=== PATIENT | female | born 1975 | race Native Hawaiian/Other Pacific Islander ===

== ENCOUNTER 2017-08-16 17:07 | Emergency (ER) | payer MEDICAID, OTHER ==
[~2017-08-16] VITALS: Ht 157.5 cm; Wt 118.2 kg
[~2017-08-16 17:07] MED LIST: NOCURR
[2017-08-16 18:00] LABS: CALCIUM, TOTAL 8.9 mg/dL (8.8-10.5); CREATININE 1.44 mg/dL (0.60-1.30); POTASSIUM 4.3 mmol/L (3.5-5.1)
[2017-08-16 18:03] LABS: BASOPHILS # (AUTO) 0.14 K/uL (0.00-0.20); BASOPHILS % (AUTO) 1.1 % (0.0-2.0); EOSINOPHILS # (AUTO) 0.52 K/uL (0.00-0.70); EOSINOPHILS % (AUTO) 3.77 % (1.0-6.0); HEMATOCRIT 41.2 % (36-46); HEMOGLOBIN 13.5 g/dL (12.0-16.0); LYMPHOCYTES # (AUTO) 2.9 K/uL (1.0-4.8); LYMPHOCYTES % (AUTO) 21.1 % (22.0-44.0); MEAN CORPUSCULAR HEMOGLOBIN 27.7 pg (26.0-34.0); MEAN CORPUSCULAR HGB CONC 32.7 G/dL (31.0-37.0); MEAN CORPUSCULAR VOLUME 85 fL (80-100); MONOCYTES # (AUTO) 0.7 K/uL (0.1-1.0); MONOCYTES % (AUTO) 5.3 % (2.0-9.0); NEUTROPHILS # (AUTO) 9.4 K/uL (1.8-7.7); NEUTROPHILS % (AUTO) 68.8 % (40.0-70.0); PLATELET COUNT (AUTO) 410 K/uL (150-450); RED BLOOD CELL COUNT(AUTO) 4.85 MIL/uL (4.00-5.20); WHITE BLOOD COUNT (AUTO) 13.7 K/uL (4.5-11.0)
[2017-08-16 18:06] LABS: ALBUMIN 3.6 g/dL (3.4-5.0); BILIRUBIN,TOTAL 0.2 mg/dL (0.1-1.0); TOTAL PROTEIN, SERUM 8.4 g/dL (6.4-8.2)
[2017-08-16] MEDS ORDERED: BARIUM SULFATE 0.1% SUSPENSION 450 ML BOTTLE PO ONE (18:45)
[2017-08-16 21:30] VITALS: BP 132/89
== END 2017-08-16 22:22 | disposition home or self-care (01) ==
LOC: EMS 17:08
DX: N28.9 Disorder of kidney and ureter, unspecified (principal); R10.12 Left upper quadrant pain; E78.00 Pure hypercholesterolemia, unspecified; I25.10 Atherosclerotic heart disease of native coronary artery without angina pectoris; Z80.0 Family history of malignant neoplasm of digestive organs; Z95.1 Presence of aortocoronary bypass graft; Z98.890 Other specified postprocedural states
CPT/HCPCS: 36415; 74176; 80053; 83690; 84703; 85025; 93005; 99285; Z7610